=== PATIENT | female | born 1975 | race Two or more races ===

== ENCOUNTER → 2024-08-13 | Outpatient (CLI) | payer BC, SELFPAY ==
[2024-08-13 11:59] LABS: Collection Type, Urine Clean Catch; Squamous Epithelial Cell,Urine 0 /hpf (0-5)
[2024-08-13 12:27] LABS: Basophils % (Auto) 0 % (0-2.5); Eosinophils # (Auto) 0.1 Thou/mm3 (0.0-0.5); Eosinophils % (Auto) 3 % (0-10); Hematocrit 36.6 % (36.0-46.0); Hemoglobin 12.2 g/dL (12.0-16.0); Immature Granulocytes % (Auto) 0 % (0-0); Immature Granulocytes Auto 0.01 Thou/mm3 (0.00-0.00); Lymphocytes # (Auto) 1.2 Thou/mm3 (1.0-4.8); Lymphocytes % (Auto) 26 % (10-50); Mean Corpuscular HGB Conc 33.3 g/dl (31.0-37.0); Mean Corpuscular Hemoglobin 27.4 pg (25.0-35.0); Mean Corpuscular Volume 82 fL (80-100); Monocytes # (Auto) 0.4 Thou/mm3 (0.0-0.8); Monocytes % (Auto) 8 % (0-12); Neutrophils # (Auto) 2.9 Thou/mm3 (1.8-7.7); Neutrophils % (Auto) 63 % (37-80); Nucleated Red Blood Cell % 0 /100 WBC (0); Platelet Count 344 Thou/mm3 (140-440); RDW Standard Deviation 37.9 fL (36.4-46.3); Red Blood Count 4.45 Miln/mm3 (4.00-5.20); White Blood Count 4.6 Thou/mm3 (3.6-11.0)
[2024-08-13 12:32] LABS: Glucose Estimated Average 117 mg/dL (80-131); Hemoglobin A1C 5.7 % Hgb (4.8-6.0)
[2024-08-13 12:38] LABS: Bacteria,Urine Rare; Bilirubin,Urine Negative (Negative); Blood,Urine 2+ (Negative); Color,Urine Yellow (Lt Yel-Yel); Glucose, Urine Negative (Negative); Ketones,Urine Negative (Negative); Leukocyte Esterase,Urine Positive (Negative); Nitrite,Urine Negative (Negative); Protein,Urine Trace (Neg - Trace); RBC,Urine 44 /hpf (0-3); Specific Gravity,Urine 1.023 (1.001-1.035); Urobilinogen,Urine Negative mg/dL (0.0-1.0); WBC,Urine 1147 /hpf (0-5)
[2024-08-13 12:39] LABS: Alanine Aminotransferase 12 U/L (10-49); Albumin, Serum 4.3 gm/dL (3.5-5.0); Albumin/Globulin Ratio 1.5 (1.2-2.2); Alkaline Phosphatase 77 U/L (46-116); Anion Gap 9 (7-16); Aspartate Amino Transferase 21 U/L (0-34); BUN/Creatinine Ratio 20 Ratio (12-20); Bilirubin,Total 0.5 mg/dL (0.3-1.2); Blood Urea Nitrogen 14 mg/dL (9-23); Calcium 9.1 mg/dL (8.3-10.6); Calcium (Corrected) 9.1 mg/dL (8.5-10.1); Carbon Dioxide 25.1 mMol/L (20.0-31.0); Cardiac Risk Estimate 3.5 RATIO (3.7-5.6); Chloride 108 mMol/L (98-107); Cholesterol 183 mg/dL (132-200); Creatinine (Component) 0.7 mg/dL (0.6-1.3); Follicle Stimulating Hormone 6.82 mIU/mL (See Note); Globulin 2.8 gm/dL (2.3-3.5); Glucose 107 mg/dL (74-106); HDL Cholesterol 52 mg/dL (40-60); LDL Cholesterol,Calculated 115 mg/dL (0-130); Osmolality,Calculated 283 (275-295); Sodium 142 mMol/L (136-145); Thyroid Stimulating Hormone 0.46 uIU/mL (0.55-4.78); Total Protein 7.1 gm/dL (5.7-8.2); Triglycerides 82 mg/dL (30-150); Uric Acid 4.7 mg/dL (3.1-7.8); Vitamin B12 1529 pg/mL (211-911); Vitamin D 25 Hydroxy Total 30.4 ng/mL (7.3-40.2); eGFR > 60 See Note
[2024-08-13 12:41] LABS: Clarity,Urine Hazy (Clear/Hazy)
[2024-08-25 06:19] LABS: Estrogen, Total, Serum* 650 pg/mL; Luteinizing Hormone* 3.1 mIU/mL; Progesterone,LC/MS* <0.1 ng/mL
== END | disposition home or self-care (01) ==
PROVIDERS: PCP Internal Medicine; Referring Provider Internal Medicine; Visit Provider Internal Medicine
DX: Z00.00 Encounter for general adult medical examination without abnormal findings (principal)
CPT/HCPCS: 36415; 80053; 80061; 81001; 82306; 82607; 82672; 83001; 83002; 83036; 84144; 84443; 84550; 85025

== ENCOUNTER → 2025-02-26 | Outpatient (CLI) | payer BC, SELFPAY ==
--- NOTE | 2025-02-26 15:33 | XR_ITS ---
Examination: Foot, right, 3 views Technique: AP, oblique, lateral views foot, 3 views Date and time of exam: February 26, 2025: 1547 hours INDICATIONS: Stepped on glass 1 year ago with persistent pain the last 6 months. FINDINGS: Mild narrowing first metatarsophalangeal joint No fracture. No cortical bone destruction. No opaque foreign body 5 mm plantar bony calcaneal spur. IMPRESSION: No cortical bone destruction No opaque foreign body
== END | disposition home or self-care (01) ==
LOC: CDIM 15:14
PROVIDERS: PCP Internal Medicine; Referring Provider Internal Medicine; Visit Provider Internal Medicine
DX: M25.571 Pain in right ankle and joints of right foot (principal); S99.921S Unspecified injury of right foot, sequela; W22.8XXS Striking against or struck by other objects, sequela
CPT/HCPCS: 73630

== ENCOUNTER → 2025-03-29 | Outpatient (CLI) | payer BC, SELFPAY ==
[2025-03-29 13:58] LABS: Collection Type, Urine Clean Catch
[2025-03-29 14:29] LABS: Basophils # (Auto) 0.0 Thou/mm3 (0.0-0.2); Basophils % (Auto) 0 % (0-2.5); Eosinophils # (Auto) 0.1 Thou/mm3 (0.0-0.5); Eosinophils % (Auto) 2 % (0-10); Hematocrit 40.0 % (36.0-46.0); Hemoglobin 13.0 g/dL (12.0-16.0); Immature Granulocytes Auto 0.01 Thou/mm3 (0.00-0.00); Lymphocytes # (Auto) 1.6 Thou/mm3 (1.0-4.8); Lymphocytes % (Auto) 36 % (10-50); Mean Corpuscular HGB Conc 32.5 g/dl (31.0-37.0); Mean Corpuscular Hemoglobin 25.2 pg (25.0-35.0); Mean Corpuscular Volume 78 fL (80-100); Monocytes # (Auto) 0.4 Thou/mm3 (0.0-0.8); Monocytes % (Auto) 10 % (0-12); Neutrophils # (Auto) 2.2 Thou/mm3 (1.8-7.7); Neutrophils % (Auto) 51 % (37-80); Nucleated Red Blood Cell # 0.00 Thou/mm3 (0.00-0.00); Nucleated Red Blood Cell % 0 /100 WBC (0); Platelet Count 323 Thou/mm3 (140-440); RDW Standard Deviation 38.3 fL (36.4-46.3); Red Blood Count 5.15 Miln/mm3 (4.00-5.20); White Blood Count 4.3 Thou/mm3 (3.6-11.0)
[2025-03-29 14:43] LABS: Bilirubin,Urine Negative (Negative); Blood,Urine Trace (Negative); Color,Urine Yellow (Lt Yel-Yel); Glucose, Urine Negative (Negative); Hyaline Casts,Urine < 1 /hpf (0-1); Ketones,Urine Negative (Negative); Leukocyte Esterase,Urine Negative (Negative); Nitrite,Urine Negative (Negative); PH,Urine 5.5 (5.0-7.0); Protein,Urine Trace (Neg - Trace); RBC,Urine 4 /hpf (0-3); Specific Gravity,Urine 1.017 (1.001-1.035); Squamous Epithelial Cell,Urine < 1 /hpf (0-5); Urobilinogen,Urine Negative mg/dL (0.0-1.0); WBC,Urine < 1 /hpf (0-5)
[2025-03-29 14:45] LABS: Clarity,Urine Hazy (Clear/Hazy)
--- NOTE | 2025-03-29 15:26 | XR_ITS ---
EXAMINATION: PA lateral chest 2 views TECHNIQUE: Upright PA lateral chest 2 views Date and time: March 29, 2025, 1534 hours, comparison June 10, 2023 INDICATIONS: Cough and chest pain 1 month. FINDINGS: Normal heart size Lungs are clear. Osseous rectors are intact IMPRESSION: No active disease
[2025-03-29 15:29] LABS: Glucose Estimated Average 120 mg/dL (80-131); Hemoglobin A1C 5.8 % Hgb (4.8-6.0)
[2025-03-29 18:10] LABS: Alanine Aminotransferase 24 U/L (10-49); Albumin, Serum 4.5 gm/dL (3.5-5.0); Albumin/Globulin Ratio 1.4 (1.2-2.2); Alkaline Phosphatase 82 U/L (46-116); Anion Gap 8 (7-16); Aspartate Amino Transferase 25 U/L (0-34); BUN/Creatinine Ratio 18 Ratio (12-20); Bilirubin,Total 0.4 mg/dL (0.3-1.2); Blood Urea Nitrogen 11 mg/dL (9-23); Calcium 9.4 mg/dL (8.3-10.6); Calcium (Corrected) 9.4 mg/dL (8.5-10.1); Carbon Dioxide 25.7 mMol/L (20.0-31.0); Cardiac Risk Estimate 2.8 RATIO (3.7-5.6); Chloride 108 mMol/L (98-107); Cholesterol 164 mg/dL (132-200); Creatinine (Component) 0.6 mg/dL (0.6-1.3); Globulin 3.2 gm/dL (2.3-3.5); Glucose 99 mg/dL (74-106); HDL Cholesterol 58 mg/dL (40-60); LDL Cholesterol,Calculated 87 mg/dL (0-130); Osmolality,Calculated 282 (275-295); Potassium 4.5 mMol/L (3.4-5.1); Sodium 142 mMol/L (136-145); Thyroid Stimulating Hormone < 0.01 uIU/mL (0.55-4.78); Total Protein 7.7 gm/dL (5.7-8.2); Triglycerides 94 mg/dL (30-150); Uric Acid 4.7 mg/dL (3.1-7.8); eGFR > 60 See Note
[2025-03-30 13:20] LABS: Ferritin 12 ng/mL (7.3-270.7)
[2025-03-30 13:37] LABS: Vitamin B12 771 pg/mL (211-911); Vitamin D 25 Hydroxy Total 37.1 ng/mL (7.3-40.2)
== END | disposition home or self-care (01) ==
PROVIDERS: PCP Internal Medicine; Referring Provider Internal Medicine; Visit Provider Radiology Diagnostic Radiology
DX: R05.1 Acute cough (principal); Z00.00 Encounter for general adult medical examination without abnormal findings
CPT/HCPCS: 36415; 71046; 80053; 80061; 81001; 82306; 82607; 82728; 83036; 84443; 84550; 85025

== ENCOUNTER → 2025-04-27 | Outpatient (CLI) | payer BC, SELFPAY ==
--- NOTE | 2025-04-27 10:00 | XR_ITS ---
Examination: Breast ultrasound complete, bilateral Date and time of exam: April 27, 2025, 1009 hours INDICATIONS: Bilateral breast pain several years Technique: Real-time grayscale ultrasonographic imaging bilateral breasts, including all 4 quadrants as well as nipple retroareolar and axillary regions. Findings: Sonographic images right and left breast demonstrate no cystic or solid masses Nonpathologic appearing axillary lymph nodes IMPRESSION: BI-RADS Category 2: Benign findings
--- NOTE | 2025-04-27 11:00 | XR_ITS ---
Examination: Screening digital mammography, bilateral Computer aided detection 3-D breast Tomosynthesis, bilateral Date and time of exam: 04/27/2025, 10:21 a.m. Comparisons: 01/24/2024 Indications: Screening Technique: Nonmagnified MLO, CC views of the breasts to been obtained, reconstructed from 3-D Tomosynthesis images. R2 computer aided detection program utilized for evaluation of suspicious masses and/or abnormal calcifications. 3-D Tomosynthesis images obtained. Technologist: Findings: There are scattered areas of fibroglandular density. No evidence of abnormal masses or suspicious calcifications. Impression: BI-RADS category 1: Negative findings (within normal) Recommend 1 year follow-up mammogram
== END | disposition home or self-care (01) ==
LOC: CDIM 09:46
PROVIDERS: PCP Internal Medicine; Referring Provider Internal Medicine; Visit Provider Internal Medicine
DX: Z12.31 Encounter for screening mammogram for malignant neoplasm of breast (principal); R92.313 Mammographic fatty tissue density, bilateral breasts
CPT/HCPCS: 76641; 77063; 77067